=== PATIENT | female | born 2000 | race Caucasian/White ===

== ENCOUNTER 2025-08-12 17:15 | Emergency (ER) | payer OTHER, MEDICAID, SELFPAY ==
[2025-08-12 17:19] VITALS: BP 129/90; PULSE 80; TEMP 36.7; O2SAT 99
--- OUTSIDE RECORDS SUMMARY | 2025-08-12 17:24 | XMS_ITS | Clinical Summary ---
Author Organization [facility] Address [address] [place] [address] Phone Care Team Providers Care Top Waddy Name Role Phone Imtiaz Hall MD Primary Care Provider [phone] Allergies No known active allergies Medications No known medications Active Problems No known active problems Immunizations Immunization Administration Dates Next Due (ADACEL/BOOSTRIX)(10 YR UP) TDAP VACCINE, 0.5ML, IM 08/24/2017 Influenza Seasonal Unspecified Formulation IM Meningococcal A Conjugate Vaccine IM 08/24/2017 Social History Tobacco Use Types Packs/Day Years Used Date Smoking Tobacco: Former E-Cigarette/Mist Inhalation Device Smokeless Tobacco: Never Tobacco Cessation:Ready to Q uit: No; Counseling Given: Yes Alcohol Use Standard Drinks/Week Comments No 0 (1 standard drink = 0.6 oz pur e alcohol) occasional Comments No Sex and Gender Information Value Date Recorded Sex Assigned at Not on file 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 Gender Identity Not on file Sexual Orientation Not on file Last Filed Vital Signs Vital Sign Reading Time Taken Comments Blood Pressure 118/74 04/27/2021 2:17 PM CDT Pulse 68 04/27/2021 2:17 PM CDT Temperature 36.8 C (98.3 F) 04/27/2021 2:17 PM CDT Respiratory Rate 16 04/27/2021 2:17 PM CDT Oxygen Saturation 97% 04/27/2021 2:17 PM CDT Inhaled Oxygen Concentration - - Weight 131.4 kg (289 lb 9.6 oz) 04/27/2021 2:17 PM CDT Height 188 cm (6' 2 ) 04/27/2021 2:17 PM CDT Body Mass Index 37.18 04/27/2021 2:17 PM CDT Plan of Treatment Health Maintenance Due Date Last Done Comments HPV VACCINES (1 - 3-dose series) 2015 HEPATITIS B VACCINES (1 of 3 - 19+ 3-dose series) 2019 CERVICAL CANCER SCREENING 2021 HPV/Cotest (21-29) 2021 PAP SMEAR 2021 Preventative Visit- Commercial 11/12/2024 08/24/2017 INFLUENZA VACCINE (#1) 2025 04/27/2021, 2017 DTAP/TDAP/TD VACCINES (2 - Td or Tdap) 08/24/2027 Insurance [employer] Care Teams Top Waddy Relationship Specialty Start Date End Date Imtiaz Hall MD [address] [place] [address] PCP - General Family Practice 04/27/21
--- OUTSIDE RECORDS SUMMARY | 2025-08-12 17:24 | XMS_ITS | Encounter Summary ---
Author Organization [facility] Address [address] [place] [address] Care Team Providers Care Medical Billing Representative Name Role Phone Imtiaz Hall MD Primary Care Provider [phone] Encounter Details Date Type Department Care Team (Late st Contact Info) Description 12/01/2019 Lab Requisition [facility] General Laboratory Services [place] [address] [place] [address] Robin Corona, NO ADDRESS ON FILE Social History Tobacco Use Types Packs/Day Years Used Date Smoking Tobacco: Every Day E-Cigarette/M ist Inhalation Device Smokeless Tobacco: Never Alcohol Use Standard Drinks/Week Comments No 0 (1 standard drink = 0.6 oz pur e alcohol) occasional Comments No Sex and Gender Information Value Date Recorded Sex Assigned at Not on file 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 Gender Identity Not on file Sexual Orientation Not on file documented as of this encounter Plan of Treatment Not on file documented as of this encounter Procedures Procedure Name Priority Date/Time Associated Diagnosis Comments INFLUENZA VIRUS A AND B, ANTIGEN DETECTION Routine 12/01/2019 6:38 PM [employer] documented in this encounter Results * INFLUENZA VIRUS A AND B, ANTIGEN DETECTION (12/01/2019 6:38 PM W[employer] MECH[employer]IC) INFLUENZA A AG Not Detected Not Detected 12/01/2019 7:06 PM W[employer] MECH[employer]IC [facility] INFLUENZA B AG Not Detected Not Detected 12/01/2019 7:06 PM W[employer] MECH[employer]IC [facility] Upper Respiratory ENTIRE NASOPHARYNX / Unknown 12/01/2019 6:38 PM W[employer] MECH[employer]IC 12/01/2019 6:39 PM W[employer] MECH[employer]IC Narrative [facility] - 12/01/2019 7:06 PM W[employer] MECH[employer]IC Negative results do not rule out infection. If clinically indicated, consider PCR testing which is more sensitive than antigen testing. If PCR testing is desired, consult with your local laboratory as sample recollection may be required. Robin Corona DO MICROBIOLOGY - GENERAL ORDERABL ES Final Result [facility] CLIA # [id number] [address] [id number] documented in this encounter Visit Diagnoses Not on filedocumented in this encounter Additional Health Concerns Infection Onset Date Last Indicated Resolved Time R/O COVID-19 07/14/2020 07/14/2020 07/15/2021 9:25 PM CDT documented as of this encounter Care Teams Medical Billing Representative Relationship Specialty Start Date End Date Imtiaz Hall MD [address] [id number] PCP - General Family Practice 04/27/21 documented as of this encounter
--- OUTSIDE RECORDS SUMMARY | 2025-08-12 17:24 | XMS_ITS | Continuity of Care Document ---
Author Organization ABDULLAHI [facility] Giovanny, L.LEdmundoCEdmundo, [facility] ([facility]) Address [address] [place] [address] Care Team Providers Care Camp Manager Name Role Phone SYLVIE BROCK Primary Care Provider Assessment Encounter Date Assessment Date Assessment LastModified by Organization Details LastModified Time 08/05/2025 08/05/2025 24-year-old female with a history of presenting with supervision of normal . The patient describes minor heat intolerance but no concerning symptoms such as bleeding. She remains well-hydrated and is undergoing routine ultrasound examinations without current complications. [email or web address] Not available 08/05/2025 17:23:54 Plan of Treatment Reminders Order Date Submit Date Provider Last Modified By Organization Details Last Modified Time Details Appointments RETURN OB 2024 04:15P M Sylvie Brock MD Not available Not available Not available ULTRASO UND 2024 03:15P M ULTRASOUND Not available Not available Not available RETURN OB 2024 04:30P M Sylvie Brock MD Not available Not available Not available RETURN OB 2024 04:30P M Sylvie Brock MD Not available Not available Not available RETURN OB 2024 04:30P M Sylvie Brock MD Not available Not available Not available RETURN OB 2024 04:30P M Sylvie Brock MD Not available Not available Not available RETURN OB 2025 04:15P M Sylvie Brock MD Not available Not available Not available RETURN OB 2025 04:15P M Sylvie Brock MD Not available Not available Not available RETURN OB 2025 04:15P M Sylvie Brock MD Not available Not available Not available RETURN OB 2025 04:30P M Sylvie Brock MD Not available Not available Not available RETURN OB 2025 04:15P M Sylvie Brock MD Not available Not available Not available RETURN OB 2025 04:15P M Sylvie Brock MD Not available Not available Not available RETURN OB 2025 04:15P M Sylvie Brock MD Not available Not available Not available Lab None recorde d. Referral None recorde d. Procedures None recorde d. Surgeries None recorde d. Imaging None recorde d. Medication Orders None recorde d. Patient TargetsNo targets recorded. Patient Instructions Encounter Date Encounter Id Patient Instructions Last Modified By Organization Details Last Modified Time 08/05/2025 [id number] - Continue your routine care. - Drink plenty of water, especially when feeling hot. - Plan and attend your scheduled anatomy scan. - Follow up in one month or sooner if new concerns arise. [email or web address] Not available 08/05/2025 17:23:55 I discussed with the patient her current well-being during her and reinforced the importance of remaining well-hydrated to mitigate discomfort related to heat intolerance. We talked about her past experiences with ultrasounds and confirmed the plan for an upcoming anatomy scan. I reassured her of the normality of her symptoms in the context of care and scheduled her follow-up in one month. No additional issues or concerns were raised, and the patient consented to this ongoing care plan. [email or web address] Not available 08/05/2025 17:23:55 Reason for Referral None Reported. Results Created Date Observation Date Name Description Value Unit Range Abnormal Flag Note LastModifiedBy Organization Detail LastModifiedTime 06/30/20 25 07/03/2025 HIV 1/2 ANTIG EN/AN TIBOD Y,FOU RTH GENER ATION W/RFL HIV final interpretati on HIV Negat kalpana HIV-1 antig en and HIV-1 /HIV- 2 antib odies were not detec alex. There is no labor atory evide nce of HIV infec tion. Not Available [facility] (?) [facility] [address] [facility] [place], [address], 07/03/2025 08:32:33 06/30/20 25 07/03/2025 HIV 1/2 ANTIG EN/AN TIBOD Y,FOU RTH GENER ATION W/RFL HIV Ag/Ab, 4TH gen NON-RE ACTIVE non-re active normal Not Available [address], [address], 07/03/2025 08:32:33 06/30/20 25 07/03/2025 URINA LYSIS , COMPL ETE color YELLOW yellow normal Not Available [address], [address], 07/03/2025 08:32:34 06/30/20 25 07/03/2025 URINA LYSIS , COMPL ETE appearance CLEAR clear normal Not Available [address], [address], 07/03/2025 08:32:34 06/30/20 25 07/03/2025 URINA LYSIS , COMPL ETE specific gravity 1.016 1.001- 1.035 normal Not Available [address], [address], 07/03/2025 08:32:34 06/30/20 25 07/03/2025 URINA LYSIS , COMPL ETE pH 6.5 5.0-8. 0 normal Not Available [address], [address], 07/03/2025 08:32:34 06/30/20 25 07/03/2025 URINA LYSIS , COMPL ETE glucose NEGATI VE negati ve normal Not Available [address], [address], 07/03/2025 08:32:34 06/30/20 25 07/03/2025 URINA LYSIS , COMPL ETE bilirubin NEGATI VE negati ve normal Not Available [address], [address], 07/03/2025 08:32:34 06/30/20 25 07/03/2025 URINA LYSIS , COMPL ETE ketones 1+ negati ve abnormal Not Available [address], [address], 07/03/2025 08:32:34 06/30/20 25 07/03/2025 URINA LYSIS , COMPL ETE occult blood NEGATI VE negati ve normal Not Available [address], [address], 07/03/2025 08:32:34 06/30/20 25 07/03/2025 URINA LYSIS , COMPL ETE protein TRACE negati ve abnormal Not Available [facility] [address], [address], 07/03/2025 08:32:34 06/30/20 25 07/03/2025 URINA LYSIS , COMPL ETE nitrite NEGATI VE negati ve normal Not Available [facility] [address], [address], 07/03/2025 08:32:34 06/30/20 25 07/03/2025 URINA LYSIS , COMPL ETE leukocyte esterase TRACE negati ve abnormal Not Available [address], [address], 07/03/2025 08:32:34 06/30/20 25 07/03/2025 URINA LYSIS , COMPL ETE WBC NONE SEEN /hpf < or = 5 normal Not Available [facility] [address], [address], 07/03/2025 08:32:34 06/30/20 25 07/03/2025 URINA LYSIS , COMPL ETE RBC NONE SEEN /hpf < or = 2 normal Not Available [address], [address], 07/03/2025 08:32:34 06/30/20 25 07/03/2025 URINA LYSIS , COMPL ETE squamous epithelial cells 6-10 /hpf < or = 5 abnormal Not Available [address], [address], 07/03/2025 08:32:34 06/30/20 25 07/03/2025 URINA LYSIS , COMPL ETE bacteria MANY /hpf none seen abnormal Not Available [address], [address], 07/03/2025 08:32:34 06/30/20 25 07/03/2025 URINA LYSIS , COMPL ETE hyaline cast 0-5 /lpf none seen abnormal Not Available [address], [address], 07/03/2025 08:32:34 06/30/20 25 07/03/2025 URINA LYSIS , COMPL ETE note This urine was belem zed for the prese nce of WBC, RBC, bacte pacheco, casts , and other forme d eleme nts. Only those eleme nts seen were repor alex. Not Available [address], [address], 07/03/2025 08:32:34 06/30/20 25 07/03/2025 CBC (INCL UDES DIFF/ PLT) white blood cell count 8.4 thous and/u L 3.8-10 .8 normal Not Available [address], [address], 07/03/2025 08:32:35 06/30/20 25 07/03/2025 CBC (INCL UDES DIFF/ PLT) red blood cell count 4.53 judi on/uL 3.80-5 .10 normal Not Available [address], [address], 07/03/2025 08:32:35 06/30/20 25 07/03/2025 CBC (INCL UDES DIFF/ PLT) hemoglobin 12.9 g/dL 11.7-1 5.5 normal Not Available [address], [address], 07/03/2025 08:32:35 06/30/2007/03/2025 CBC (INCL UDES DIFF/ PLT) hematocrit 39.6 % 35.0-4 5.0 normal Not Available [address], [address], 07/03/2025 08:32:35 06/30/2007/03/2025 CBC (INCL UDES DIFF/ PLT) MCV 87.4 fL 80.0-1 00.0 normal Not Available [address], [address], 07/03/2025 08:32:35 06/30/2007/03/2025 CBC (INCL UDES DIFF/ PLT) MCH 28.5 pg 27.0-3 3.0 normal Not Available [address], [address], 07/03/2025 08:32:35 06/30/2007/03/2025 CBC (INCL UDES DIFF/ PLT) MCHC 32.6 g/dL 32.0-3 6.0 normal For adult s, a sligh t decre ase in the calcu lated MCHC value (in the range of 30 to 32 g/dL) is most likel y not clini harjinder signi fican t; mahamed er, it shoul d be inter prete d with cauti on in corre latio n with other red cell jabier eters and the patie nt's clini rom condi tion. Not Available [address], [address], 07/03/2025 08:32:35 06/30/2007/03/2025 CBC (INCL UDES DIFF/ PLT) RDW 13.2 % 11.0-1 5.0 normal Not Available [address], [address], 07/03/2025 08:32:35 06/30/20 25 07/03/2025 CBC (INCL UDES DIFF/ PLT) platelet count 297 thous and/u L 140-40 0 normal Not Available [address], [address], 07/03/2025 08:32:35 06/30/20 25 07/03/2025 CBC (INCL UDES DIFF/ PLT) MPV 11.7 fL 7.5-12 .5 normal Not Available [address], [address], 07/03/2025 08:32:35 06/30/20 25 07/03/2025 CBC (INCL UDES DIFF/ PLT) absolute neutrophils 5594 cells /uL 1500-7 800 normal Not Available [address], [address], 07/03/2025 08:32:35 06/30/20 25 07/03/2025 CBC (INCL UDES DIFF/ PLT) absolute lymphocytes 1873 cells /uL 850-39 00 normal Not Available [address], [address], 07/03/2025 08:32:35 06/30/20 25 07/03/2025 CBC (INCL UDES DIFF/ PLT) absolute monocytes 470 cells /uL 200-95 0 normal Not Available [address], [address], 07/03/2025 08:32:35 06/30/20 25 07/03/2025 CBC (INCL UDES DIFF/ PLT) absolute eosinophils 395 cells /uL 15-500 normal Not Available [address], [address], 07/03/2025 08:32:35 06/30/20 25 07/03/2025 CBC (INCL UDES DIFF/ PLT) absolute basophils 67 cells /uL 0-200 normal Not Available [address], [address], 07/03/2025 08:32:35 06/30/20 25 07/03/2025 CBC (INCL UDES DIFF/ PLT) neutrophils 66.6 % normal Not Available [address], [address], 07/03/2025 08:32:35 06/30/20 25 07/03/2025 CBC (INCL UDES DIFF/ PLT) lymphocytes 22.3 % normal Not Available [address], [address], 07/03/2025 08:32:35 06/30/20 25 07/03/2025 CBC (INCL UDES DIFF/ PLT) monocytes 5.6 % normal Not Available [address], [address], 07/03/2025 08:32:35 06/30/20 25 07/03/2025 CBC (INCL UDES DIFF/ PLT) eosinophils 4.7 % normal Not Available [address], [address], 07/03/2025 08:32:35 06/30/20 25 07/03/2025 CBC (INCL UDES DIFF/ PLT) basophils 0.8 % normal Not Available [address], [address], 07/03/2025 08:32:35 06/30/2007/03/2025 HEPAT ITIS B SURFA CE ANTIG EN W/REF L CONFI RM hepatitis B surface antigen NON-RE ACTIVE non-re active normal For addit ional infor marie contreras e refer to http: //prateek alcaraz.que stdia gnost ics.c om/fa q/FAQ 202 (This link is being provi ded for infor matio nal/ educa preeti l purpo ses only. ) Not Available [facility] [address] [place], [address], 07/03/2025 08:32:35 06/30/2007/03/2025 HEPAT ITIS C AB W/REF L TO HCV RNA, QN, PCR hepatitis C antibody NON-RE ACTIVE non-re active normal HCV antib kojo was non-r eacti ve. There is no labor atory evide nce of HCV infec tion. In most cases , no furth er actio n is requi red. Howev er, if recen t HCV expos ure is suspe cted, a test for HCV RNA (test code 77665 ) is sugge sted. For addit ional infor [facility] pleas e refer to http: //[facility] brittny alcaraz.que stdia gnost ics.c om/fa q/FAQ 22v1 (This link is being provi ded for infor matio nal/ educa preeti l purpo ses only. ) Not Available [facility] [address] [place], [address], 07/03/2025 08:32:36 06/30/2007/03/2025 RUBEL LA AB (IGG) , IMMUN E STATU S rubella Ab (IgG), immune status 1.51 index normal Index Inter preta tion ----- ----- ----- ---- <0.90 Not consi stent with immun ity 0.90- 0.99 Equiv ocal > or = 1.00 Consi stent with immun ity The prese nce of rubel la IgG antib kojo sugge sts immun izati on or past or curre nt infec tion with rubel la virus . Not Available [facility] [address] [address] [place], [address], 07/03/2025 08:32:37 06/30/2007/03/2025 CHLAM YDIA/ N. GONOR RHOEA E RNA, TMA, UROGE NITAL chlamydia trachomatis RNA, tma, urogenital NOT DETECT ED not detect ed normal Not Available [address], [address], 07/03/2025 08:32:38 06/30/20 25 07/03/2025 CHLAM YDIA/ N. GONOR RHOEA E RNA, TMA, UROGE NITAL neisseria gonorrhoeae RNA, tma, urogenital NOT DETECT ED not detect ed normal Not Available [facility] [address], [address], 07/03/2025 08:32:38 06/30/2007/03/2025 CHLAM YDIA/ N. GONOR RHOEA E RNA, TMA, UROGE NITAL comment The belem tical perfo rmanc e wendy cteri stics of this assay , when used to test SureP ath(T M) speci mens have been deter mined by [facility]. The modif icati ons have not been clear ed or appro renetta by the FDA. This assay has been valid ated pursu ant to the CLIA regul ation s and is used for clini rom purpo ses. For addit ional infor marie contreras refer to https ://ed ati on.qu estWakoopa. com/f aq/FA Q154 (This link is being provi ded for infonelson alcaraz/ maksim toure purpo ses only. ) Not Available [address], [address], 07/03/2025 08:32:38 06/30/2007/03/2025 RPR (DX) W/REF L TITER AND T. PALLI DUM AB, IA RPR (DX) w/refl titer and confirmatory testing NON-RE ACTIVE non-re active normal No labor atory evide nce of syphi lis. If recen t expos ure is suspe cted, submi t a new sampl e in 2-4 weeks . Not Available [facility] (?) [address], [address], 07/03/2025 08:32:39 06/30/2007/03/2025 ANTIB KOJO SCREE N, RBC W/REF L ID, TITER AND AG antibody screen, RBC w/refl id, titer and Ag NO ANTIBO DIES DETECT ED normal Refer ence range No antib odies detec alex This assay is a scree vernon test for the detec tion of red blood cell antib odies . The test is not to be used for pretr ansfu lionel scree vernon or for the medic al manag ement of an alloi mmuni zed pregn daniel. Not Available [address], [address], 07/03/2025 08:32:39 06/30/2007/03/2025 ABO GROUP AND RH TYPE ABO group O Not Available [address], [address], 07/03/2025 08:32:40 06/30/2007/03/2025 ABO GROUP AND RH TYPE Rh type RH(D) POSITI VE For addit ional infor marie contreras e refer to http: //[facility] br[facility]ny Blackman stDia gnost ics.c om/fa q/FAQ 111 (This link is being provi ded for infor paul olguin/ maksim toure purpo ses only. ) Not Available [address], [address], 07/03/2025 08:32:40 06/30/2007/03/2025 DRUG MONIT OR, PANEL 1, SCREE N, URINE amphetamines NEGATI VE NG/mL <500 See Note A See Note A Not Available [address], [address], 07/03/2025 08:32:41 06/30/20 25 07/03/2025 DRUG MONIT OR, PANEL 1, SCREE N, URINE barbiturates NEGATI VE NG/mL <300 See Note A See Note A Not Available [facility] [address], [place], [address], 07/03/2025 08:32:41 06/30/20 25 07/03/2025 DRUG MONIT OR, PANEL 1, SCREE N, URINE benzodiazepi sarahi NEGATI VE NG/mL <100 See Note A See Note A Not Available [facility] [address], [place], [address], 07/03/2025 08:32:41 06/30/20 25 07/03/2025 DRUG MONIT OR, PANEL 1, SCREE N, URINE cocaine metabolite NEGATI VE NG/mL <150 See Note A See Note A Not Available [facility] [address], [place], [address], 07/03/2025 08:32:41 06/30/20 25 07/03/2025 DRUG MONIT OR, PANEL 1, SCREE N, URINE marijuana metabolite POSITI VE NG/mL <20 abnormal See Note A See Note A Not Available [facility] [address], [place], [address], 07/03/2025 08:32:41 06/30/20 25 07/03/2025 DRUG MONIT OR, PANEL 1, SCREE N, URINE methadone metabolite NEGATI VE NG/mL <100 See Note A See Note A Not Available [facility] [address], [place], [address], 07/03/2025 08:32:41 06/30/20 25 07/03/2025 DRUG MONIT OR, PANEL 1, SCREE N, URINE opiates NEGATI VE NG/mL <100 See Note A See Note A Not Available [facility] [address], [place], [address], 07/03/2025 08:32:41 06/30/20 25 07/03/2025 DRUG MONIT OR, PANEL 1, SCREE N, URINE oxycodone NEGATI VE NG/mL <100 See Note A See Note A Not Available [address], [place], [address], 07/03/2025 08:32:41 06/30/2007/03/2025 DRUG MONIT OR, PANEL 1, SCREE N, URINE phencyclidin e NEGATI VE NG/mL <25 See Note A See Note A Not Available [address], [place], [address], 07/03/2025 08:32:41 06/30/2007/03/2025 DRUG MONIT OR, PANEL 1, SCREE N, URINE creatinine 165.9 mg/dL > or = 20.0 Not Available [facility] [address], [place], [address], 07/03/2025 08:32:41 06/30/2007/03/2025 DRUG MONIT OR, PANEL 1, SCREE N, URINE pH 6.7 4.5-9. 0 Not Available [address], [place], [address], 07/03/2025 08:32:41 06/30/2007/03/2025 DRUG MONIT OR, PANEL 1, SCREE N, URINE oxidant NEGATI VE mcg/m L <200 Not Available [address] , [place], [address], 07/03/2025 08:32:41 06/30/2007/03/2025 DRUG MONIT ORING TEMPL ATE notes and comments This drug testi ng is for medic al treat ment only. Belem sis was perfo rmed as non-f orens ic testi ng and these resul ts shoul d be used only by lisa burns provi dersherry to rende r diagn osis or treat ment, or to monit or progr ess of medic al condi tions . Note A: The resul ts are presu mptiv e; based only on hollie palma, and they have not been confi rmed by a defin itive metho d. Healt hcare Provi ders needi ng Inter preta tion abraham tance , pleas e conta ct us at 1.877 .40.R XTOX (1.87 [phone] ) M-F, 8am to 10pm EST Not Available [facility] [address] [address], [place], [address], 07/03/2025 08:32:42 06/30/20 25 07/03/2025 CULTU RE, URINE , ROUTI NE culture, urine, routine SEE NOTE abnormal CULTU RE, URINE , ROUTI NE Micro Numbe r: [id number] Test Statu s: Final Speci men Sourc e: Urine Speci men Quali ty: Adequ ate Resul t: Great er than 100,0 00 CFU/m L of Esche georgi a coli 50,00 0-100 ,000 CFU/m L of Group B Strep tococ cus isola alex Beta- hemol ytic strep tococ ci are predi ctabl y susce ptibl e to Penic illin and other beta- lacta ms. Susce ptibi lity testi ng not routi alice perfo rmed. Pleas e conta ct the labor atory withi n 3 days if susce ptibi lity testi ng is demarco ed. Comme nt: Eryth romyc in and clind amyci n are not recom aysha d for treat ment of urina ry tract infec tions , but clind amyci n may be usefu l for treat ment of recto vagin al colon izati on or infec tion. Any amoun t of group B Strep tococ cus in urine speci mens obtai silverio from pregn ant femal es is a marke r of genit al tract colon izati on. If this patie nt is pregn ant, pleas e refer to ACOG guide lines for appro priat e scree vernon and manag ement of pregn ant women . E.col i ----- ----- ----- - INT IMTIAZ AMOX/ CLAVU LANAT E S 8 AMP/S ULBAC VUONG S <=2 CEFAZ MADELIN NR <=1 2 CEFEP KIESHA S <=0.1 2 CEFTA ZIDIM E S <=0.5 CEFTR IAXON E S <=0.2 5 CIPRO FLOXA JORGE LUIS S <=0.0 6 GENTA MICIN S 2 IMIPE NEM S <=0.2 5 LEVOF LOXAC IN S <=0.1 2 MEROP ENEM S <=0.2 5 NITRO FURAN TOIN S <=16 PIP/T AZOBA CTAM S <=4 TRIME THOPR IM/NICHOLS LFA S <=20 S = Susce ptibl e I = Inter media te R = Resis tant NS = Not susce ptibl e SDD = Susce ptibl e Dose Depen dent * = Not Teste d NR = Not Repor alex NN = See Thera py Comme nts THERA PY COMME NTS Note 1: For infec tions other than uncom plica alex UTI cause d by E. coli, K. pneum oniae or P. mirab ilis: Cefaz madelin is resis tant if IMTIAZ > or = 8 mcg/m L. (Dist ingui shing susce ptibl e versu s inter media te for isola júnior with IMTIAZ < or = 4 mcg/m L requi res addit ional testi ng.) Note 2: For uncom plica alex UTI cause d by E. coli, K. pneum oniae or P. mirab ilis: Cefaz madelin is susce ptibl e if IMTIAZ <32 mcg/m L and predi cts susce ptibl e to the oral agent s cefac gabe, cefdi tierra, cefpo doxim e, cefpr ozil, cefur oxime , cepha lexin and lorac arbef . Not Available [facility] [address] , [place], [address], 07/03/2025 08:32:42 07/20/2007/16/2025 US, obste tric, 1st trime ster No observ ation record ed. [email or web address] [facility] [address] [place], [address], 07/22/2025 11:29:05 09/0807/16/2025 US, obste tric, 1st trime ster No observ ation record ed. [email or web address] [facility] [address] [place], [address], 07/22/2025 12:20:10 Result Notes None recorded. Problems Name Problem SNOMED Code Status Onset Date Resolution Date Notes Provider Name and Address Organization Details Recorded Time [id number] Active 025 [facility], LEdmundoLNabor 17:15:51 Problem Notes None recorded. Medical Equipment None Reported. Allergies No known drug allergies Medications Name Sig Start Date Stop Date Status Note LastModified by Organization Details LastModified Time promethaz ine-DM 6.25 mg-15 mg/5 mL oral syrup TID/PRN coughing 06/29 completed Recorded 11/06/20 09 4:50PM by PITA Gale, Office Visit; Refill Quantity : 0; Not Available Not Available Not Available Macrobid 100 mg capsule Take 1 capsule every 12 hours by oral route as directed for 5 days, for UTI. 07/18 completed Not Available Not Available Not Available escitalop hany 10 mg tablet TAKE 1 TABLET BY MOUTH ONCE DAILY 08/05 completed Not Available Not Available Not Available active Not Available Not Avai lable Not Available B12 active Not Available Not Availa ble Not Available Vitals Date Recorded Body height Body mass index (BMI) Body weight Oxygen saturation Oxygen saturation in Arterial blood by Pulse oximetry Heart rate Systolic And Diastolic Provider Name and Address Organization Details Last Updated DateTime 184.15 cm 38.4 kg/m2 020223. 01 g 98 % 98 % 87 /min 112/58 mm[Hg] Michaela Barger [facility], LEdmundoLEdmundoCEdmundo 17:07:44 Social History Question Answer Notes LastModified by Organizat ion Details LastModified Time Tobacco Smoking Status Current Every Day Smoker Vape [facility], HollyLNabor 06/29/2025 17:29:59 Which Illicit Or Recreational Drugs Have You Used? Marijuana Information not available 06/29/2025 Sex: Unknown Functional Status Question Answer Note LastModified by Organizat ion Details LastModified Time Do you use any illicit or recreational drugs? Yes [email or web address] Information not available 06/29/2025 What is your level of alcohol consumption? None [email or web address] Information not available 06/29/2025 Mental Status None recorded. Family History Nothing Reported. Medical History No medical history recorded. Gynecological History Statement/Question Response Date of LMP 04/21/2025 LMP Approximate Age at First Child 24 On BCP's at Conception? N Obstetrics History GPAL:G 1 P 0 0 0 0 Immunizations Vaccine Type Date Status Note Provider Nam e and Address Organization Details Recorded Time Hep B, unspecified formulation 0 completed Not Available [facility] 08/05/2025 16:57:15 Hep B, adolescent/high risk infant 0 completed Not Available [facility] 08/05/2025 16:57:15 DTaP 0 completed Not Available [facility] 08/05/2025 16:57:15 Hib (PRP-T) 0 completed Not Available [facility] 08/05/2025 16:57:15 IPV 0 completed Not Available [facility] 08/05/2025 16:57:15 Hep B, adolescent/high risk infant 1 completed Not Available [facility] 08/05/2025 16:57:15 DTaP 1 completed Not Available [facility] 08/05/2025 16:57:15 Hib (PRP-T) 1 completed Not Available [facility] 08/05/2025 16:57:15 IPV 1 completed Not Available [facility] 08/05/2025 16:57:15 DTaP 1 completed Not Available [facility] 08/05/2025 16:57:15 Hib (PRP-T) 1 completed Not Available [facility] 08/05/2025 16:57:15 DTaP 1 completed Not Available [facility] 08/05/2025 16:57:15 Hib (PRP-T) 1 completed Not Available [facility] 08/05/2025 16:57:15 IPV 1 completed Not Available [facility] 08/05/2025 16:57:15 MMR 1 completed Not Available [facility] 08/05/2025 16:57:15 DTaP 4 completed Not Available [facility] 08/05/2025 16:57:15 MMR 4 completed Not Available [facility] 08/05/2025 16:57:15 IPV 4 completed Not Available [facility] 08/05/2025 16:57:15 Tdap 7 completed Not Available [facility] 08/05/2025 16:57:15 meningococcal MCV4P 7 completed Not Available [facility] 08/05/2025 16:57:15 Influenza, split virus, quadrivalent, PF 8 completed Not Available [facility] 08/05/2025 16:57:15 Tdap 4 completed Not Available [facility] 08/05/2025 16:57:15 Past Encounters Encounter ID Performer Location Encounter Start Date Encounter Closed Date Diagnosis/Indication Diagnosis SNOMED-CT Code Diagnosis ICD10 Code Diagnosis IMO Codes Diagnosis Note [id number] Sylvie Brock MD [facility] [place]) [address] [place] [phone] 07/16/2025 15:47:50 07/17/2025 10:42:25 [id number] Sylvie Brock MD [facility], [place]) [address] [place] [phone] 08/05/2025 16:56:56 08/05/2025 17:50:15 [id number] [id number] - Continue routine care. - Ensure adequate hydration to help with heat-relat ed discomfort . - Schedule and complete anatomy scan as planned. - Follow-up in one month. Health Concerns Section Related Observation LastModified by Organization Detai ls LastModified Time None Recorded Concern Status LastModified by Organization Details LastModified Time None Recorded Payers Encounter Date Sequence Insurance Name Policy Number Policy Mathews Covered Member ID Mathews Member ID Guarantor Name 08/05/2025 1 [facility] (MEDICAID HMO) Miladis Dietz [id number] Edmond Panchal Dietz Notes Date Note Type Note Provider Name and Address Organization Details Recorded Time 08/05/2025 text/html ROS as noted in the HPI The patient is a 24-year-old female presenting with supervision of a normal . She maintains good overall health but experiences issues when she becomes excessively warm, which affects her ability to eat and engage in daily activities. There are no reports of bleeding or concerning symptoms. The patient is well-hydrated, drinking plenty of fluids. Although prior ultrasounds caused discomfort, she has a future anatomy scan scheduled. Recent health stability is noted without new symptoms since the prior visit. 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 Status 06/29/20 25 1 O Positive 297 Jareth Sharp OPEN Fetus Data First Name Last Name Admitted to NICU Weight (g) Sex Living Outcome Pediatric Complications Fetus ID Race Codes Race Delivery Type [id number] Yung Calculation Initial Yung Date Initial Exam Date Initial Exam Provider Initial Ultrasound Date Last Menstrual Period Date Ultra Sound Weeks Gestation 06/29/2025 07/16/2025 04/20/2025 13 Eighteen To Twenty Week Yung Update Ultra Sound Date Fundal Height At Umbil Quickening Date Ultra Sound Latest Weeks Gestation Final Yung Confirmed By Final Yung Confirmed Date Final Yung Date Ultra Sound Latest Days Gestation 0 01/19/20 26 0 Pre- Flowsheet Flowsheet Date 06/29/2025 Ibarra Score Blood Edema Fundus Height Fundus Units Glucose Ketones Leukocytes Nitrite Labor Signs Protein Cervic Dilation Cervic Effacement Cervic Station Type Weight in lbs Pre/Post Dialysis Refused Weight 288.43271850010 BP Diastolic BP Location Tested BP Systolic BP Type 84 130 Fetus Heart Rate Present Fetus Movement Comments Flowsheet Date 07/16/2025 Ibarra Score Blood Edema Fundus Height Fundus Units Glucose Ketones Leukocytes Nitrite Labor Signs Protein Cervic Dilation Cervic Effacement Cervic Station Type Weight in lbs Pre/Post Dialysis Refused BP Diastolic BP Location Tested BP Systolic BP Type Fetus Heart Rate Present Fetus Movement Comments Flowsheet Date 08/05/2025 Ibarra Score Blood Edema Fundus Height Fundus Units Glucose Ketones Leukocytes Nitrite Labor Signs Protein Cervic Dilation Cervic Effacement Cervic Station neg none none none Negative trace Type Weight in lbs Pre/Post Dialysis Refused Weight 287.580725679015 BP Diastolic BP Location Tested BP Systolic BP Type 58 R arm 112 sitting Fetus Heart Rate Present A 160 Fetus Movement Comments Menstrual History Last Menstrual Date Menses Monthly On Bcp Conception Prior Menses Frequency Hcg Plus Date Menarche Onset Age 0604/20/2025 Genetic Screening And Infection History Question Response Note Patient's Age Will Be 35 Yea rs Or Older At Estimated Date of Delivery false Thalassemia (Samoan, Irish, Mediterranean, Or Background): MCV < 80 false Neural Tube Defect (Meningom yelocele, Spina Bifida, Or Anencephaly) false Congenital Heart Defect false Down Syndrome false Jamie-Sachs (eg, Caodaism, Cajun, Chadian-Niuean) f alse Jareth Disease false Sickle Cell Disease Or Trait () false Hemophilia Or Other Blood Disorders false Muscular Dystrophy false Cystic Fibrosis false Darke's Chorea false Intellectual Disability/Autism false If Yes, Was Person Tested For Fragile X? false Other Inherited Genetic Or Chromosomal Disorder false Maternal Metabolic Disorder (eg, Type 1 Diabetes , PKU) false Patient Or Baby's Father Had A Child With Defects Not Listed Above false Recurrent Loss, Or A Stillbirth false Medications (including Suppl ements, Vitamins, Herbs, OTC Drugs), Illicit/Recreational Drugs, Alcohol true a nd B12 If Yes, Agent(s) And Strength/Dosage true Any Other Genetic History true Sarqud osis Live With Someone With TB Or Exposed To TB false Patient Or Partner Has History Of Genital Herpes false Rash Or Viral Illness Since Last Menstrual Perio d false History Of STD, Gonorrhea, Chlamydia, HPV, Syphi lis false Other Infection History false History of HIV false History of Hepatitis false Prior GBS-infected child false Hemoglobinopathy Or Carrier false Other Structural Defect false Recent Travel History Outside of Country false Mental Retardation/Autism false Delivery Information Delivery Date Delivery Type Labor Anesthesia Weeks Gestation Incision Type Labor Labor Length Hrs Delivered By Post Complications Tubal Sterilization Discharge Date Comments Discharge Information Feeding Method Contraceptive Method Maternal HG B and HCT Levels
--- NOTE | 2025-08-12 18:02 | USR_ITS ---
PROCEDURE INFORMATION: Exam: US After First Trimester, Transabdominal Exam date and time: 08/12/2025 6:23 PM Age: 25 years old Clinical indication: Lmp or gestational age (in weeks): 17 weeks; Other: Clear discharge; LABS AND CLINICAL REPORTS: Last menstrual period start date: Unknown Gestational age (Established): 17 w 2 d Estimated due date (Established): 01/18/2026 TECHNIQUE: Imaging protocol: Real-time transabdominal obstetrical ultrasound of the maternal pelvis and a second or third trimester with image documentation. COMPARISON: No relevant prior studies available. FINDINGS: Gestation: Single live intrauterine gestation. heart rate: 155 bpm presentation and position: Breech at this time. Placenta: Placenta is anterior and suggestion of low-lying margin. Amniotic fluid (Qualitative): Amniotic fluid is normal for gestational age. Maximum vertical pocket is 4.6 cm. BIOMETRY: Gestational age (AUA): 17 weeks 3 days Estimated due date (AUA): 01/17/2026 Estimated weight: 197.59 g (7 oz) EFW by AC, BPD, FL, HC, Hadlock 1985, 58.5 percentile. Biparietal diameter (BPD): 3.8 cm. EGA (BPD) is 17 w 4 d. 64.1 % percentile Head circumference (HC): 14.01 cm. EGA (HC) is 17 w 2 d. 43.7 % percentile Abdominal circumference (AC): 11.55 cm. EGA (AC) is 17 w 2 d. 50.1 % percentile Femur length (FL): 2.55 cm. EGA (FL) is 17 w 5 d. 62.4 % percentile HC/AC: 1.21. (Normal range: 1.07 - 1.28) FL/HC: 18.2. (Normal range: 15.11 - 17.77) FL/BPD: 67.11 FL/AC: 22.08 MATERNAL: Cervix: Cervical length measures 5.7 cm. Appears closed. US/US OB >= 14 weeks fetus [id number] IMPRESSION: 1. Single intrauterine of 17 weeks 3 days with FHR 155 bpm, breech presentation at this time. 2. Anterior placenta with suggestion of low-lying margin, for follow-up. 3. EFW 197.59 g (7 oz), 58.5 percentile. 4. Cervix appears long and closed.
--- NOTE | 2025-08-12 18:12 | W.ED.PREGNAN ---
HPI - General: Chief complaint: OB/Uterine Contractions Stated complaint: 17 Weeks Preg Mucus Plug little leakage Time Seen by Provider: 08/12/25 17:52 Source: patient Mode of arrival: ambulatory Limitations: no limitations History of Present Illness: Patient is a 25-year-old female, G1, P0, presenting to the Emergency Department 17 weeks complaining of some vaginal discharge. She states that she had a chunky discharge from vagina that she was concerned was a mucous plug, she talked to her OB and they told her this was benign leukorrhea but patient states she is still concerned and wants to make sure everything is okay. She has no other associated symptoms whatsoever, specifically no cramping, bleeding, or nausea/vomiting. No issues with to this date. Denies any active discharge. No urinary symptoms reported either. MD Complaint: vaginal discharge Pain Consistency: now resolved Patient : Yes Number of Weeks : 17 OB History - Current : no complications care: followed by OB and previous ultrasound confirms IUP Associated symptoms: Reports vaginal discharge; Deny abdominal pain, dysuria, headache(s), nausea or vomiting Related Data Home Medications ?Medication ?Instructions ?Recorded ?Confirmed No Known Home Medications 05/22/25 05/22/25 Allergies Allergy/AdvReac Type Severity Reaction Status Date / Time No Known Allergies Allergy Verified 08/12/25 17:27 Review of Systems General: Reports: 10 or more systems reviewed and unremarkable except in HPI and below Const: Denies: fever(s), chills, change in appetite, change in weight or diaphoresis ENMT: Denies: throat pain or hoarseness Card: Denies: chest pain, palpitations or lightheadedness Resp: Denies: dyspnea, productive cough or wheezing GI: Denies: abdominal pain, nausea, vomiting, diarrhea, constipation, bloating, change in stool character or hematochezia : Reports: vaginal discharge; Denies: flank pain, difficulty voiding, dysuria, urinary frequency, urinary urgency or vaginal bleeding Musc: Denies: neck pain or back pain Skin/Breast: Denies: rash or new lesions Neuro: Denies: headache(s) or dizziness PFSH ED PFSH: Medical History Psychiatric care Social History Smoking and tobacco/nicotine status: unknown if used tobacco/nicotine Physical Exam Const: COMMON NORMALS: no acute distress, average body habitus, patient oriented x3, no limitations, healthy appearing, alert and well nourished GENERAL APPEARANCE: cooperative and comfortable ORIENTATION/CONSCIOUSNESS: Yes awake OTHER: nontoxic Neck/C-Spine: COMMON NORMALS: full ROM, supple and no meningeal signs Resp: COMMON NORMALS: normal respiratory effort, No retractions, No use of accessory muscles and clear to auscultation bilaterally AUSCULTATION: clear to auscultation bilaterally, no crackles, no rales, no rhonchi and no wheezes Cardio: COMMON NORMALS: regular rate, regular rhythm, No gallops present (Cardio), No clicks present (Cardio), No murmurs present (Cardio), No rub (Cardio) and Peripheral pulses 2+ throughout RATE: regular rate RHYTHM: regular rhythm PERIPHERAL PULSES: Peripheral pulses 2+ throughout GI: COMMON NORMALS: Normal to inspection, nondistended, normoactive bowel sounds present, Soft to palpation, non-tender, No hepatosplenomegaly present and no masses AUSCULTATION: Yes normoactive bowel sounds PALPATION: Yes Soft to palpation, No Guarding due to palpation present (GI), No Rigid due to palpation and Yes No hepatosplenomegaly present RECTAL EXAM: deferred Extremity: COMMON NORMALS: normal to inspection and full ROM Neuro: COMMON NORMALS: patient oriented x3, moves all extremities, no focal motor deficits and no sensory deficits noted SENSORIUM/ORIENTATION: Yes alert MENINGEAL SIGNS: Yes no meningeal signs Psych: COMMON NORMALS: mental status grossly normal, cooperative and speech normal SPEECH: Yes normal speech Skin: COMMON NORMALS: no rashes or lesions noted GENERAL SKIN EXAM: no rashes or lesions noted Procedures Perimortem Number of Weeks : 17 Course Vital Signs: Vital signs: Vital Signs Temperature 98.0 F 08/12/25 17:19 Pulse Rate 65 08/12/25 18:57 Blood Pressure 140/92 08/12/25 18:57 Pulse Oximetry 100 08/12/25 18:57 Oxygen Delivery Me thod Room Air 08/12/25 18:57 MDM - OB/Uterine Contractions Medical Decision Making This patient is a 25-year-old at 17 weeks gestation presenting with concerns of possible mucous plug passage and clear vaginal discharge, associate with mild cramping. She denies vaginal bleeding, fever, or other concerning symptoms. On examination, she is hemodynamically stable. I spoke with on-call MANAGER STYLIST, Dr. Jarquin, stating no speculum exam advised at this time this is likely leukorrhea. Bedside OB ultrasound demonstrating normal close cervix, and anterior placenta, breech position of a viable fetus with normal heart rate. These findings make premature rupture of membranes and cervical insufficiency unlikely. Most likely cause of her symptoms is a physiologic vaginal discharge or passage of mild cervical mucus. Patient was counseled on warning signs, including vaginal bleeding, persistent or heavy fluid leakage, fever, worsening abdominal pain, advised to return to ED if these occur. She is otherwise stable and safe for discharge with routine obstetric follow-up. Urinalysis did not show any infection. Lab Data Radiology Impressions Ultrasound 08/12/25 18:02 IMPRESSION: 1. Single intrauterine of 17 weeks 3 days with FHR 155 bpm, breech presentation at this time. 2. Anterior placenta with suggestion of low-lying margin, for follow-up. 3. EFW 197.59 g (7 oz), 58.5 percentile. 4. Cervix appears long and closed. Laboratory Results Urine Color Yellow (Yellow) 08/12/25 18:55 Urine Appearance Clear (CLEAR) 08/12/25 18:55 Urine pH 6.0 (5-7) 08/12/25 18:55 Ur Specific Preston 1.016 (1.005-1.030) 08/12/25 18:55 Urine Protein Negative (Negative) 08/12/25 18:55 Urine Glucose (UA) Negative (Normal) 08/12/25 18:55 Urine Ketones Trace (Negative) 08/12/25 18:55 Urine Blood Negative (Negative) 08/12/25 18:55 Urine Nitrate Negative (Negative) 08/12/25 18:55 Urine Bilirubin Negative (Negative) 08/12/25 18:55 Urine Urobilinogen 1.0 mg/dL (Negative) 08/12/25 18:55 Ur Leukocyte Esterase Negative (Negative) 08/12/25 18:55 Amorphous Sediment Not Reportable 08/12/25 18:55 All radiology interpretation(s) finalized by discharge Discharge Plan Discharge Patient Disposition: Home Clinical Impression: Vaginal leukorrhea during Condition: Stable Prescriptions: No Action No Known Home Medications Discharge Orders: Discharge ED (Routine); Ordered 08/12/25 Ordered By: Johnnie Carolina Referrals: Ken Brock MD [Primary Care Provider, Family Practice] Kusum Vail MD [Family Provider, Family Practice] Patient Instructions: Patient Portal & Saturnino Instructions Activity Restrictions/Additional Instructions: Leukorrhea Discharge Discharge Instructions: Leukorrhea in (17 Weeks, Long Closed Cervix) - Diagnosis and Clinical Status: The patient is a 25-year-old at 17 weeks gestation, presenting with leukorrhea. Transvaginal ultrasound demonstrates a long, closed cervix, and there are no signs of cervical shortening or dilation. The is viable, and no acute intervention is required at this time. - Clinical Significance: Leukorrhea, defined as >10 WBCs/high-power field on vaginal fluid microscopy, may indicate cervical inflammation and is associated with increased risk of cervical infection with Chlamydia trachomatis or Neisseria gonorrhoeae, particularly in high-risk populations. However, in the absence of additional risk factors, symptoms, or microbiological evidence of infection, leukorrhea alone is not predictive of adverse outcome. Bacterial vaginosis is the most common cause of abnormal vaginal discharge in and is associated with increased risk of and other complications; screening and treatment are recommended in high-risk women, but routine treatment in low-risk, asymptomatic women is not universally endorsed. - Instructions for Home Care: - Monitor for Symptoms: Advise the patient to monitor for new or worsening symptoms, including: - Fever, chills, or systemic symptoms - Abdominal pain or cramping - Vaginal bleeding - Foul-smelling, green, yellow, or bloody discharge - Dysuria or urinary frequency - Signs of labor (regular contractions, pelvic pressure, leakage of fluid) - Hygiene: Quality Control [employer] on gentle perineal hygiene. Avoid douching, scented products, or intravaginal medications unless prescribed. - Sexual Activity: Sexual activity may be continued if comfortable and no contraindications exist. Advise condom use if there is concern for sexually transmitted infection. - Follow-Up: Outpatient follow-up is recommended. Schedule a return visit for routine care and re-evaluation of symptoms. If leukorrhea persists or worsens, consider repeat wet mount, pH testing, and screening for bacterial vaginosis and sexually transmitted infections per CDC guidelines. - When to Seek Care: Instruct the patient to seek immediate medical attention for: - Heavy vaginal bleeding - Severe abdominal pain - Passage of tissue - Signs of labor - Fever >38?C (100.4?F) - Reassurance: Reassure that leukorrhea is common in and, in the absence of infection or cervical shortening, is not associated with adverse outcomes. The cervix is long and closed, and there is no evidence of labor or cervical incompetence. - Additional Considerations: - If risk factors for bacterial vaginosis or history of are present, consider screening and treatment as per CDC recommendations. - Routine use of probiotics or lactobacilli for prevention of vulvovaginal symptoms is not supported by current evidence. - No intervention is indicated for cervical length at this time, as the cervix is long and closed. Summary: The patient is stable for discharge with outpatient follow-up. Leukorrhea in warrants monitoring and may prompt further evaluation if symptoms develop, but does not require acute intervention in the absence of infection or cervical shortening. Print Language: Bahraini Coding Level of Care Code ED Environmental Science Program Director for Manju Isbell
[2025-08-12 18:57] VITALS: BP 140/92; PULSE 65; O2SAT 100
[2025-08-12 19:00] LABS: Add Urine Microscopic? NO
[2025-08-12 19:03] LABS: Glucose Urine UA Negative (Normal); Nitrate Urine Negative (Negative); Specific Gravity, Urine 1.016 (1.005-1.030)
[2025-08-12 19:05] LABS: Charge for UA Resulting for Rev
[2025-08-12 19:36] VITALS: BP 141/79; PULSE 77; O2SAT 99
== END 2025-08-12 19:38 | disposition home or self-care (01) ==
PROVIDERS: Emergency Provider Physician Assistant; Family Provider Family Medicine; PCP Family Medicine
DX: O26.892 Other specified pregnancy related conditions, second trimester (principal); Z3A.17 17 weeks gestation of pregnancy; N89.8 Other specified noninflammatory disorders of vagina
CPT/HCPCS: 76805; 81003; 99284

== ENCOUNTER 2025-10-30 12:24 | Outpatient (CLI) | payer OTHER, MEDICAID, SELFPAY ==
[2025-10-30 12:34] VITALS: BP 137/81; PULSE 102
[2025-10-30 12:39] VITALS: RESP 18; BMI 37.0
[2025-10-30 12:49] VITALS: BP 125/63; PULSE 83
[2025-10-30 12:49] LABS: Glucose Urine UA Negative (Normal); Nitrate Urine Negative (Negative); Specific Gravity, Urine 1.017 (1.005-1.030)
[2025-10-30 13:04] VITALS: BP 134/65; PULSE 80
== END 2025-10-30 13:18 | disposition home or self-care (01) ==
LOC: OPOB 12:26 → OBGYN 12:27
PROVIDERS: PCP Family Medicine; Visit Provider Family Medicine
DX: O26.899 Other specified pregnancy related conditions, unspecified trimester (principal); Z3A.00 Weeks of gestation of pregnancy not specified; R25.2 Cramp and spasm
CPT/HCPCS: 59025; 81001; 87086; 99211